=== PATIENT | male | born 1950 | race Caucasian/White ===

== ENCOUNTER 2018-04-27 17:31 | Emergency (ER) | payer OTHER ==
--- NOTE | 2018-04-27 18:12 | EDPHYS ---
Physician Documentation [facility] Name: Yordy Albarran Age: 68 yrs Sex: Male : 1950 Arrival Date: 04/27/2018 Time: 17:34 Bed 14 Private MD: Sharif Sheikh ED Physician Anish Griffin HPI: 04/27 17:57 This 68 yrs old Male presents to ER via Ambulatory with complaints of gs Puncture Wound To Hand. 17:58 the patient presents with a swollen area of the dorsal aspect of proximal phalanx of gs right index finger and dorsal aspect of proximal phalanx of right middle finger web space. Onset: The symptoms/episode began/occurred 2 day(s) ago. Associated signs and symptoms: Pertinent positives: erythema, Pertinent negatives: drainage. Modifying factors: the symptoms are alleviated by nothing, the symptoms are aggravated by nothing. Severity of symptoms: At their worst the symptoms were moderate, in the emergency department the symptoms are unchanged. Historical: - Allergies: 17:44 No Known Allergies; sv - Home Meds: 17:44 amlodipine oral [Active]; Crestor Oral [Active]; Protonix Oral [Active]; sertraline sv Oral [Active]; Toprol XL Oral [Active]; - PMHx: 17:44 Hyperlipidemia; Hypertension; sv - PSHx: 17:44 Prostectomy; sv - Immunization history:: Flu vaccine is not up to date. - Social history:: Smoking status: Patient/guardian denies using tobacco. - Ebola Screening: : No symptoms or risks identified at this time. ROS: 17:58 All other systems are negative. gs Exam: 17:58 Neck: Trachea midline, no thyromegaly or masses palpated, and no cervical gs lymphadenopathy. Supple, full range of motion without nuchal rigidity, or vertebral point tenderness. No Meningismus. Cardiovascular: Regular rate and rhythm with a normal S1 and S2. No gallops, murmurs, or rubs. Normal PMI, no JVD. No pulse deficits. Respiratory: Lungs have equal breath sounds bilaterally, clear to auscultation and percussion. No rales, rhonchi or wheezes noted. No increased work of breathing, no retractions or nasal flaring. Abdomen/GI: Soft, non-tender, with normal bowel sounds. No distension or tympany. No guarding or rebound. No evidence of tenderness throughout. Back: No spinal tenderness. No costovertebral tenderness. Full range of motion. 17:58 Constitutional: The patient appears alert, awake. 17:58 Musculoskeletal/extremity: Extremities: small puncture 2nd web space mcp joints not involved pt states needle came out intact, Pulses: are normal with no appreciated deficits. 17:58 Skin: cellulitis, that is minimal, on the dorsum of right hand. Vital Signs: 17:43 BP 136 / 81; Pulse 78; Resp 16; Temp 98; Pulse Ox 98% ; Weight 100.7 kg; Height 5 ft. sv 10 in. (177.80 cm); Pain 0/10; 17:43 Body Mass Index 31.85 (100.70 kg, 177.80 cm) sv MDM: 17:56 Patient medically screened. 17:58 Data reviewed: vital signs, nurses notes. Counseling: I had a detailed discussion with gs the patient and/or guardian regarding: the historical points, exam findings, and any diagnostic results supporting the discharge/admit diagnosis, the need for outpatient follow up. Response to treatment: There is no appreciated change of the patient's symptoms at this time, and as a result, I will discharge patient. Administered Medications: No medications were administered Disposition: 04/27/18 18:11 Discharged to Home. Impression: Cellulitis and acute lymphangitis of other sites, Puncture wound without foreign body of right hand. - Condition is Stable. - Discharge Instructions: Puncture Wound, Cellulitis, Adult, [id number]. - Prescriptions for Keflex 500 mg Oral Capsule - take 1 capsule by ORAL route every 6 hours for 10 days; 40 capsule. - Medication Reconciliation Form, Thank You Letter, Antibiotic Education, Prescription Opioid Use form. - Follow up: Emergency Department; When: 2 - 3 days; Reason: Re-evaluation by your physician. Signatures: Kayleen Sandhu RN RN Rancho Sanchez RN RN jl7 Anish Griffin MD MD Corrections: (The following items were deleted from the chart) 18:47 18:11 04/27/2018 18:11 Discharged to Home. Impression: Cellulitis and acute jl7 lymphangitis of other sites; Puncture wound without foreign body of right hand. Condition is Stable. Forms are Medication Reconciliation Form, Thank You Letter, Antibiotic Education, Prescription Opioid Use. Follow up: Emergency Department; When: 2 - 3 days; Reason: Re-evaluation by your physician. gs
--- NOTE | 2018-04-27 18:12 | ER ---
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 Punture is to the right web of the hand between 2nd and 3rd digit. Care prior to arrival: None. 17:42 Acuity: JASWINDER 4 sv 17:42 Method Of Arrival: Ambulatory sv 17:43 Transition of care: patient was not received from another setting of care. Onset of sv symptoms was April 26, 2018. 18:46 Risk Assessment: Do you want to hurt yourself or someone else? Patient reports no jl7 desire to harm self or others. Initial Sepsis Screen: Does the patient meet any 2 criteria? No. Patient's initial sepsis screen is negative. Does the patient have a suspected source of infection? No. Patient's initial sepsis screen is negative. Trauma Activation: Not Applicable Physician: ED Physician; Name: ; Notified At: ; Arrived At: Physician: General Surgeon; Name: ; Notified At: ; Arrived At: Physician: Radiology; Name: ; Notified At: ; Arrived At: Physician: Respiratory; Name: ; Notified At: ; Arrived At: Physician: Lab; Name: ; Notified At: ; Arrived At: Historical: - Allergies: 17:44 No Known Allergies; sv - Home Meds: 17:44 amlodipine oral [Active]; Crestor Oral [Active]; Protonix Oral [Active]; sertraline sv Oral [Active]; Toprol XL Oral [Active]; - PMHx: 17:44 Hyperlipidemia; Hypertension; sv - PSHx: 17:44 Prostectomy; sv - Immunization history:: Flu vaccine is not up to date. - Social history:: Smoking status: Patient/guardian denies using tobacco. - Ebola Screening: : No symptoms or risks identified at this time. Screenin:47 Abuse screen: Denies threats or abuse. Denies injuries from another. Nutritional jl7 screening: No deficits noted. Tuberculosis screening: No symptoms or risk factors identified. Fall Risk None identified. Assessment: 17:47 General: Appears in no apparent distress. comfortable, Behavior is calm, cooperative, jl7 appropriate for age. Pain: Denies pain. Neuro: Level of Consciousness is awake, alert, obeys commands, Oriented to person, place, time, situation. Cardiovascular: Capillary refill < 3 seconds in bilateral fingers Patient's skin is warm and dry. Pulses are palpable in right radial artery and left radial artery. Respiratory: Airway is patent Respiratory effort is even, unlabored, Respiratory pattern is regular, symmetrical. Derm: Skin is pink, warm \T\ dry. Musculoskeletal: Swelling present in dorsal aspect of proximal phalanx of right index finger, dorsal aspect of proximal phalanx of right middle finger and dorsum of right hand. Vital Signs: 17:43 BP 136 / 81; Pulse 78; Resp 16; Temp 98; Pulse Ox 98% ; Weight 100.7 kg; Height 5 ft. sv 10 in. (177.80 cm); Pain 0/10; 17:43 Body Mass Index 31.85 (100.70 kg, 177.80 cm) sv ED Course: 17:34 Patient arrived in ED. mr 17:35 Sharif Sheikh MD is Private Physician. mr 17:43 Triage completed. sv 17:44 Arm band placed on. sv 17:45 Rancho Palmer RN is Primary Nurse. jl7 17:47 Anish Griffin MD is Attending Physician. gs 17:47 Patient has correct armband on for positive identification. jl7 18:46 No provider procedures requiring assistance completed. Patient did not have IV access jl7 during this emergency room visit. Administered Medications: No medications were administered Outcome: 18:11 Discharge ordered by . gs 18:46 Discharged to home ambulatory. jl7 18:46 Condition: stable 18:46 Discharge instructions given to patient, family, Instructed on discharge instructions, follow up and referral plans. medication usage, Demonstrated understanding of instructions, follow-up care, medications, Prescriptions given X 1. 18:47 Patient left the ED. jl7 Signatures: Kayleen Sandhu RN RN RoblesYaritza mr Rancho Palmer RN RN jl7 Anish Griffin MD MD
== END 2018-04-27 18:47 | disposition home or self-care (01) ==
LOC: ER 17:31
DX: S61.431A Puncture wound without foreign body of right hand, initial encounter (principal); L03.818 Cellulitis of other sites; W46.0XXA Contact with hypodermic needle, initial encounter; I89.1 Lymphangitis; E78.5 Hyperlipidemia, unspecified; I10 Essential (primary) hypertension; Z79.899 Other long term (current) drug therapy
CPT/HCPCS: 99282

== ENCOUNTER 2020-03-05 13:54 | Emergency (ER) | payer OTHER ==
--- OUTSIDE RECORDS SUMMARY | 2020-03-05 13:57 | XMS REPORT | Continuity of Care Document ---
:1950 Author Organization [facility] t Address [facility] [place] [address] Care Team Providers Name Role Phone Unavailable Unavailable Unavailable Problems This patient has no known problems. Allergies, Adverse Reactions, Alerts This patient has no known allergies or adverse reactions. Social History Smoking Status Start Date Stop Date Source Former Smoker [facility] Medications Ordered Filled Start Stop Current Ordering Indication Dosage Frequency Signature Comments Components Source Medication Medication Date Date Medication? Clinician (SIG) Name Name amlodipine amlodipine No amlodipine [place] 5 mg tablet 5 mg tablet 5 mg d a tablet [facility] ezetimibe ezetimibe No ezetimibe [place] 10 mg 10 mg 10 mg da tablet tablet tablet [facility] metformin metformin No metformin [facility] 500 mg 500 mg 500 mg da tablet tablet tablet [facility] metoprolol metoprolol No metoprolol [place] succinate succinate succinate da ER 25 mg ER 25 mg ER 25 mg Med ical tablet,exte tablet,exte tablet,ext Group nded nded ended release 24 release 24 release 24 hr hr hr pantoprazol pantoprazol No pantoprazo [place] e 40 mg e 40 mg le 40 mg da tablet,alec tablet,alec tablet,del Medical yed release yed release ayed G roup release rosuvastati rosuvastati No rosuvastat [place] n 20 mg n 20 mg in 20 mg da tablet tablet tablet [facility] sertraline sertraline No sertraline [place] 50 mg 50 mg 50 mg da tablet tablet tablet [facility] triamterene triamterene No triamteren [place] 37.5 37.5 e 37.5 da mg-hydrochl mg-hydrochl mg-hydroch Medical orothiazide orothiazide [facility] 25 mg 25 mg de 25 mg capsule capsule capsule Vital Signs Vital Name Observation Time Observation Value Comments Source BP Diastolic 2020-03-02 00:00:00 69 mm[Hg] [facility] Height 2020-03-02 00:00:00 71 [in_i] [facility] BMI (Body Mass 2020-03-02 00:00:00 32.8 kg/m2 [facility] Medical Index) Group BP Systolic 2020-03-02 00:00:00 124 mm[Hg] [facility] Body Weight 2020-03-02 00:00:00 234.9 [lb_av] [facility] Procedures Procedure Date / Time Performed Performing Clinician Abdirahman e Procedure on Knee [facility] Prostatectomy [facility] Encounters Start End Encounter Admission Attending Care Care Encounter Source Date/Time Date/Time Type Type Clinicians Facility Department ID 2020-03-02 2020-03-02 ANN MARIE Ding [place] - [id number] [facility] 00:00:00 00:00:00 MD: [facility] [address], [facility], Otolaryngol [facility] [id number] , Ph. Results This patient has no known results.
--- OUTSIDE RECORDS SUMMARY | 2020-03-05 13:57 | XMS REPORT | Encounter Summary ---
:1950 Author Care Team Providers Name Role Phone Sharif Sheikh MD Primary Care Provider [phone] Blaine Heredia MD Typo Machine Operator [phone] Reason for Visit New pt Instructions 1. Anterior epistaxis Discussion Note: None recorded.Patient educational handouts: No information available. Plan of Care Reminders Provider Appointments None recorded. Lab None recorded. Referral None recorded. Procedures None recorded. Surgeries None recorded. Imaging None recorded. Medications Name Start Date amlodipine 5 mg tablet ezetimibe 10 mg tablet metformin 500 mg tablet metoprolol succinate ER 25 mg tablet,extended release 24 hr pantoprazole 40 mg tablet,delayed release rosuvastatin 20 mg tablet sertraline 50 mg tablet triamterene 37.5 mg-hydrochlorothiazide 25 mg capsule Medications Administered None recorded. Vitals Height Weight BMI Blood Pressure 5 ft 11 in 234.9 lbs 32.8 kg/m2 124/69 mm[Hg] Results Lab Results None recorded. Allergies Code Code System Name Reaction Severity Status Onset NKDA Problems No Known Problems Procedures Date Name Performed by Procedure on Knee Information not avai lable Prostatectomy Information not avai lable Vaccine List None recorded. Social History Tobacco Smoking Status Former Smoker Past Encounters Encounter Date Diagnosis Provider 03/02/2020 Anterior Epistaxis Blaine [facility]ia [facility] [address] [facility] [address], [place] [address], Ph. [phone] History of Present Illness Note: patient is here for at least 3 days of right sided nasal bleeding. The bleeding is usually caused by heavy nose blowing. He was on aspirin which she stopped 3 days ago. no other nasal symptoms werereported.Review of Systems: ROS as noted in the HPI Review of Systems None recorded. Physical Exam ENT Exam [facility] [place] oscope Reported By: Patient Constitutional: General Appearance: healthy- appearing, well-nourished, well groomed, in no acute distres s. Communication: normal communication w/o aids, normal voice quali ty Head/Face: Inspection: atraumatic, no m asses, no lesions, no scarring. Facial strength: normal strength, n ormal symmetry, no synkinesis, no facial tic. Sinuses: no tend erness. Salivary glands: no tenderness of the parotid glands, no pa rotid masses, no tenderness of the submandibular glands, no sub mandibular masses. Inspection of the TMJ: symmetric opening, no p opping with motion. Palpation of the TMJ: non-tender, no crepitus Eyes: Pupils: EOM intact, PERRLA, conjunctiva non-injected Ears: Right Hearing: Rinne AC>BC, Galindo midline. Left Hearing: Rinne AC>BC, Galindo midline. Right External ear: normally formed, free of lesions. Left External ear: normally formed, free of lesions. Right External auditory marci l: normal appearance, no obstruction, no erythema, no discharge. L eft External auditory canal: normal appearance, no obstruction, no erythema, no discharge. Right Tympanic membrane: mobile wi th pneumatic otoscopy, pearly gonsalves, landmarks clear. Left Tympan ic membrane: mobile with pneumatic otoscopy, pearly gonsalves, landm arks clear Nose: Nasal Skin: no lesions, no l acerations, no scars. Nasal Dorsum: symmetric with no visible or palpable deformities. Nasal tip: normal symmetric nasal tip, normal nasal valves. Nasal Mucosa: excoriated. Septum: deviated to the left; excoritated vessle seen on the right septum. after m anipulation with qtip, brisk bleeding is visualized. Polyps: none Oral Cavity/Mouth: Lips, teeth, gums: normal li ps, normal gums, normal dentition. Oral Mucosa: normal, moist, no lesions. Palate: normal hard palate, normal soft palate. Tongue: normal tongue, no lesions, no edema. Tonsils: normal tonsi ls, no lesions. Posterior pharynx: normal Neck: Neck: symmetrical, trachea m idline. Thyroid: symmetric, no enlargement, no tenderness, no nodules
--- NOTE | 2020-03-05 16:54 | EDPHYS ---
Physician Documentation [facility] Name: Yordy Albarran Age: 70 yrs Sex: Male : 1950 Arrival Date: 03/05/2020 Time: 13:56 Bed 16 Private MD: Sharif Sheikh ED Physician Gopal Mondragon HPI: 03/05 15:25 This 70 yrs old Male presents to ER via Ambulatory with complaints of Nose jr8 Bleed. 15:25 The patient presents with a nose bleed, that is apparently posterior, from the right jr8 nare, occurred from an unknown cause, that is continuous. Onset: The symptoms/episode began/occurred acutely, today. Modifying factors: The symptoms are alleviated by nothing. the symptoms are aggravated by nothing. Associated signs and symptoms: The patient has no apparent associated signs or symptoms, Loss of consciousness: the patient experienced no loss of consciousness. Severity of symptoms: At their worst the symptoms were moderate in the emergency department the symptoms are unchanged. The patient has not experienced similar symptoms in the past. The patient has not recently seen a physician. Patient stated that he had cauterization to right nare three days ago. Stated that this AM started to have bleeding again that is extending to left side as well now . Historical: - Allergies: 13:56 No Known Allergies; aa5 - Home Meds: 13:56 metoprolol [Active]; amlodipine oral [Active]; pantoprazole oral oral [Active]; aa5 sertraline oral oral [Active]; - PMHx: 13:56 Hyperlipidemia; Hypertension; borderline diabetes (diet controlled at this time); aa5 - PSHx: 13:56 Prostectomy; aa5 - Immunization history:: Adult Immunizations unknown. - Social history:: Smoking status: Patient denies any tobacco usage or history of. ROS: 15:25 Eyes: Negative for injury, pain, redness, and discharge, Neck: Negative for injury, jr8 pain, and swelling, Cardiovascular: Negative for chest pain, palpitations, and edema, Respiratory: Negative for shortness of breath, cough, wheezing, and pleuritic chest pain, Abdomen/GI: Negative for abdominal pain, nausea, vomiting, diarrhea, and constipation, Back: Negative for injury and pain, MS/Extremity: Negative for injury and deformity, Skin: Negative for injury, rash, and discoloration, Neuro: Negative for headache, weakness, numbness, tingling, and seizure. 15:25 ENT: Positive for nose bleed. Exam: 15:25 Eyes: Pupils equal round and reactive to light, extra-ocular motions intact. Lids and jr8 lashes normal. Conjunctiva and sclera are non-icteric and not injected. Cornea within normal limits. Periorbital areas with no swelling, redness, or edema. Neck: Trachea midline, no thyromegaly or masses palpated, and no cervical lymphadenopathy. Supple, full range of motion without nuchal rigidity, or vertebral point tenderness. No Meningismus. Cardiovascular: Regular rate and rhythm with a normal S1 and S2. No gallops, murmurs, or rubs. Normal PMI, no JVD. No pulse deficits. Respiratory: Lungs have equal breath sounds bilaterally, clear to auscultation and percussion. No rales, rhonchi or wheezes noted. No increased work of breathing, no retractions or nasal flaring. Abdomen/GI: Soft, non-tender, with normal bowel sounds. No distension or tympany. No guarding or rebound. No evidence of tenderness throughout. Back: No spinal tenderness. No costovertebral tenderness. Full range of motion. Skin: Warm, dry with normal turgor. Normal color with no rashes, no lesions, and no evidence of cellulitis. MS/ Extremity: Pulses equal, no cyanosis. Neurovascular intact. Full, normal range of motion. Neuro: Awake and alert, GCS 15, oriented to person, place, time, and situation. Cranial nerves II-XII grossly intact. Motor strength 5/5 in all extremities. Sensory grossly intact. Cerebellar exam normal. Normal gait. 15:25 ENT: Nose: External nose: no obvious acute abnormality, Nasal septum: deviates to the right, Nasal mucosa: Dried blood. bleeding, is noted from both nares, and is minimal, Mouth: Lips: moist, Oral mucosa: pink and intact, moist, Gums: pink, Tongue: is moist, Posterior pharynx: Airway: patent, Uvula: midline, swelling, is not appreciated, Mild blood noted to posterior pharynx . Vital Signs: 14:13 BP 150 / 87; Pulse 78; Resp 16 S; Pulse Ox 97% on R/A; iw 15:00 BP 160 / 92; Pulse 71; Resp 18; Pulse Ox 96% on R/A; dh4 16:00 BP 122 / 106; Pulse 71; Resp 18; Pulse Ox 96% on R/A; dh4 18:16 BP 157 / 99; Pulse 77; Resp 16; Pulse Ox 97% on R/A; Pain 7/10; iw Procedures: 16:24 Epistaxis treatment: A moderate amount of bleeding noted from both nares. Treated using jr8 rhino rocket, Bleeding decreased. MDM: 14:08 Patient medically screened. jr8 16:24 Data reviewed: vital signs, nurses notes. Data interpreted: Pulse oximetry: on room air jr8 is 96 %. Interpretation: normal. Counseling: I had a detailed discussion with the patient and/or guardian regarding: the historical points, exam findings, and any diagnostic results supporting the discharge/admit diagnosis, the need to transfer to another facility, [facility] does not immediately have the required specialist. 16:51 ED course: Patient continues to bleeding slowly even with 5.5 cm packing placed. Tried jr8 7.5 cm packing but could not pass it posteriorly. Patient barely tolerating 5.5 cm as well. Left side started to bleed as well so packing was placed there as well but still with right sided bleeding. Called ENT at [facility] who will see patient for ED to ED transfer for cauterization . 03/05 16:26 Order name: CBC with Diff; Complete Time: 17:42 jr8 03/05 16:26 Order name: Basic Metabolic Panel; Complete Time: 17:42 jr8 03/05 16:26 Order name: IV; Complete Time: 16:47 jr8 Administered Medications: No medications were administered Disposition: 03/06 07:35 Co-signature as Attending Physician, Gopal Mondragon MD I agree with the assessment and felecia plan of care. Chart complete. Disposition: 03/05/20 16:[address] [facility]. Diagnosis is Epistaxis. - Reason for transfer: Higher level of care. - Accepting physician is Dr. Johns . - Condition is Stable. - Problem is new. - Symptoms are unchanged. Signatures: Dispatcher [employer] Gopal Hearn MD MD cha Williams, Irene, RN RN iw Calderon, Audri, RN RN aa5 Toñito Masters PA PA jr8 Corrections: (The following items were deleted from the chart) 03/05 18:22 16:54 03/05/2020 16:[address] [facility]. iw Diagnosis is Epistaxis. Reason for transfer: Higher level of care. Accepting physician is Dr. Johns . Condition is Stable. Problem is new. Symptoms are unchanged. jr8
--- NOTE | 2020-03-05 16:54 | ER ---
Nurse's Notes [facility] Name: Yordy Albarran Age: 70 yrs Sex: Male : 1950 Arrival Date: 03/05/2020 Time: 13:56 Bed 16 Private MD: Sharif Sheikh Diagnosis: Epistaxis Presentation: 03/05 13:56 Chief complaint: Patient states: "my right nostril started bleeding about 2 hours ago". aa5 Pt denies taking anticoagulants, pt reports he stopped taking daily aspirin approximately 1 week ago. Pt's states "he had the nose bleed on Thursday and they cauterized it but it started bleeding again today". 13:56 Coronavirus screen: Client denies travel out of the [place] in the last 14 days. At this aa5 time, the client does not indicate any symptoms associated with coronavirus-19. Risk Assessment: Do you want to hurt yourself or someone else? Patient reports no desire to harm self or others. Onset of symptoms was March 05, 2020. 13:56 Acuity: JASWINDER 3 aa5 13:56 Method Of Arrival: Ambulatory aa5 18:22 Initial Sepsis Screen: Does the patient meet any 2 criteria? No. Patient's initial iw sepsis screen is negative. Does the patient have a suspected source of infection? No. Patient's initial sepsis screen is negative. 18:22 Ebola Screen: Patient negative for fever greater than or equal to 101.5 degrees iw Fahrenheit, and additional compatible Ebola Virus Disease symptoms Patient denies exposure to infectious person. Patient denies travel to an Ebola-affected area in the 21 days before illness onset. No symptoms or risks identified at this time. Historical: - Allergies: 13:56 No Known Allergies; aa5 - Home Meds: 13:56 metoprolol [Active]; amlodipine oral [Active]; pantoprazole oral oral [Active]; aa5 sertraline oral oral [Active]; - PMHx: 13:56 Hyperlipidemia; Hypertension; borderline diabetes (diet controlled at this time); aa5 - PSHx: 13:56 Prostectomy; aa5 - Immunization history:: Adult Immunizations unknown. - Social history:: Smoking status: Patient denies any tobacco usage or history of. Screenin:16 Abuse screen: Denies threats or abuse. Denies injuries from another. Nutritional iw screening: No deficits noted. Tuberculosis screening: No symptoms or risk factors identified. Fall Risk None identified. Assessment: 14:15 General: Appears in no apparent distress. Behavior is calm, cooperative. Pain: Denies iw pain. Neuro: Level of Consciousness is awake, alert, obeys commands, Oriented to person, place, time, situation, Moves all extremities. Full function. Cardiovascular: Patient's skin is warm and dry. Respiratory: Respiratory effort is even, unlabored, Respiratory pattern is regular, symmetrical. EENT: Nares with bleeding noted on right. Musculoskeletal: Range of motion: intact in all extremities. 16:00 Reassessment: nasal packing has slipped out of right nostril, KINSEY Sibley to assess. iw 17:38 Reassessment: Patient appears in no apparent distress at this time. Patient and/or iw family updated on plan of care and expected duration. Pain level reassessed. Patient is alert, oriented x 3, equal unlabored respirations, skin warm/dry/pink. 18:17 Reassessment: Patient appears in no apparent distress at this time. pt awaiting iw transport by EMS, denies need for pain medicine at this time. Vital Signs: 14:13 BP 150 / 87; Pulse 78; Resp 16 S; Pulse Ox 97% on R/A; iw 15:00 BP 160 / 92; Pulse 71; Resp 18; Pulse Ox 96% on R/A; dh4 16:00 BP 122 / 106; Pulse 71; Resp 18; Pulse Ox 96% on R/A; dh4 18:16 BP 157 / 99; Pulse 77; Resp 16; Pulse Ox 97% on R/A; Pain 7/10; iw ED Course: 13:56 Patient arrived in ED. ag5 13:56 Sharif Sheikh MD is Private Physician. ag5 13:56 Arm band placed on. aa5 14:06 Triage completed. aa5 14:08 Toñito Masters PA is PHCP. jr8 14:08 Gopal Mondragon MD is Attending Physician. jr8 14:08 Renetta Newton, BOONE is Primary Nurse. iw 14:15 Patient has correct armband on for positive identification. iw 14:30 Assist provider with nosebleed control using rhino rocket placed for extensive packing iw needs, Bleeding from right nares. Set up for procedure. Performed by Toñito EUCEDA Bleeding stopped. Patient tolerated well. 16:47 Inserted saline lock: 20 gauge in right antecubital area, using aseptic technique. 4 16:47 Basic Metabolic Panel Sent. 4 16:47 CBC with Diff Sent. 4 17:49 contacted ems to transfer pt to [facility]. wait will be about 10 min, per gela Zamarripa. 18:21 Patient transferred, IV remains in place. iw Administered Medications: No medications were administered Outcome: 16:54 ER care complete, transfer ordered by MD. roberts 18:21 Transferred by ground EMS to [facility], [facility], Transfer form completed. iw 18:21 Transferred . 18:21 Condition: good 18:21 Discharge instructions given to patient, family, Instructed on the need for transfer, Demonstrated understanding of instructions. 18:22 Patient left the ED. iw Signatures: Alyssa Greene Irene, RN RN iw Calderon, Audri, RN RN aa5 Roszak, Josh, PA PA [id number] Joyce Carson Jose Luis Gamboa [facility]
[2020-03-05 17:13] LABS: Absolute Lymphocytes (CBC) 1.3 K/uL (0.7-4.9); Basophils % 0.2 % (0-1.3); Hematocrit 44.8 % (39.6-49.0); Lymphocytes % 13.1 % (15.3-44.8); MPV 9.7 fL (7.6-11.3); RBC Red Blood Cell Count 4.83 M/uL (4.33-5.43)
[2020-03-05 19:34] VITALS: BP 157/99; O2SAT 97
== END 2020-03-05 18:22 | disposition short-term general hospital (02) ==
LOC: ER 13:54
PROC: 2Y41X5Z Packing of Nasal Region using Packing Material (ICD-10-PCS; principal; 2020-03-05)
DX: R04.0 Epistaxis (principal); I10 Essential (primary) hypertension; E78.5 Hyperlipidemia, unspecified
CPT/HCPCS: 30901; 36415; 80048; 85025; 99285